=== PATIENT | female | born 1985 | race Two or more races ===

== ENCOUNTER 2016-06-09 17:04 | Emergency (ER) | payer MEDICAID ==
[2016-06-09] MEDS ORDERED: IOPAMIDOL 370 (76%) 100 ML VIAL IV ONE (17:05)
[2016-06-09] MEDS ORDERED: ACETAMINOPHEN 500 MG TABLET ONE (17:56)
[2016-06-09] MEDS ORDERED: ONDANSETRON 4 MG ODT TAB ONE (17:57)
[2016-06-09] MEDS ORDERED: HYDROMORPHONE HCL 1 MG/ML SYRINGE ONE (19:04)
[2016-06-09] MEDS ORDERED: SODIUM CHLORIDE 0.9% 1,000 ML ONE ×2 (19:04→20:16)
[2016-06-09 19:07] LABS: ABSOLUTE NEUTROPHIL COUNT 6.4 K/mm3 (1.8-7.7); BASO % 0.4 % (0.2-1.0); EOS # 0.1 (0.0-0.5); EOS % 0.8 % (0.9-2.9); HEMATOCRIT 37.1 % (37.0-47.0); HEMOGLOBIN 12.7 gm/l (12.0-16.0); IMM NEUT% 0.4 % (0-1); LYMPH # 0.8 (1.0-4.8); LYMPH % 10.3 % (15-45); MEAN CELL VOLUME 84.5 fl (81.0-99.0); MEAN CORPUSCULAR HEMOGLOBIN 28.9 pg (27.0-31.0); MEAN CORPUSCULAR HGB CONC 34.2 g/dl (33.0-37.0); MEAN PLATELET VOLUME 9.7 fl (7.4-10.4); MONO # 0.6 (0.0-0.8); MONO % 7.5 % (4-12); NEUT % 80.6 % (43-75); PLATELET COUNT 252 K/mm3 (130-400); RED CELL DISTRIBUTION WIDTH 12.6 % (11.5-14.5)
[2016-06-09 19:25] LABS: ALB/GLOB RATIO 1.1 (>1.0); ALBUMIN 3.9 gm/dL (3.5-5.7)
--- NOTE | 2016-06-09 20:27 | CT ---
ADDENDUM #1 Three-dimensional rotational reformatted imaging of the pulmonary arterial tree was performed with maximum intensity projection technique on a dedicated workstation, and reviewed separately. ORIGINAL REPORT CHEST CTA HISTORY: Chest pain, pleurisy, tachycardia. TECHNIQUE: Following the administration of 80 mL Isovue-370 intravenous contrast, contiguous axial images were acquired from the thoracic inlet to the diaphragmatic hiatus for CT pulmonary angiography. FINDINGS: PULMONARY ARTERIAL TREE: Technically adequate enhancement: No dominant filling defects. THORACIC AORTA: Normal caliber. No evidence of dissection. Left vertebral artery arises from the aortic arch, anatomic variant. LUNGS: Multifocal airspace disease, worst at the right middle lobe with additional involvement of the right lower lobe. Associated bronchial wall thickening. No gross pleural effusion.. TOMA AND MEDIASTINUM: A right hilar lymph node measures 1.3 cm in width. A right paratracheal node measures 9 mm in width. AXILLAE: No grossly enlarged lymph nodes. UPPER ABDOMEN: Hepatomegaly with diffuse fatty infiltration of the liver. Evidence of duodenal diverticulum formation. 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 IMPRESSION: 1. No CTA evidence of proximal order pulmonary embolus. 2. Findings consistent with right middle and right lower lobe pneumonia with associated reactive adenopathy. 3. Hepatomegaly with fatty infiltration of the liver. 4. Segmentation abnormalities of the cervicothoracic spine, development finding. Results were electronically transmitted to the electronic medical record at 06/09/2016 at 2023 hours.
[2016-06-09] MEDS ORDERED: AZITHROMYCIN 250 MG TABLET ONE (20:50)
[2016-06-09] MEDS ORDERED: CEFTRIAXONE 1 GRAM DUPLEX 50 ML IV ONE (20:50)
== END 2016-06-09 21:33 | disposition home or self-care (01) ==
LOC: ED 17:04
DX: J18.9 Pneumonia, unspecified organism (principal)
CPT/HCPCS: 85379; 85025; 80053; 71275; 87804; 96375; 99284 ×2; 96361; 96365; J1170; A9270 ×3; J7030 ×2; Q9967; J0696